=== PATIENT | female | born 2000 | race African-American/Black ===

== ENCOUNTER 2020-10-16 07:33 | Inpatient (IN) | payer OTHER ==
[2020-10-16 08:06] VITALS: BMI 29.5
[2020-10-16] MEDS ORDERED: hydrALAZINE 20 MG/ML VIAL SLOW IVP PRN ×2 (08:23→11:14)
[2020-10-16] MEDS ORDERED: Lactated Ringer's 1,000 ML IV SCH ×2 (08:30→11:15)
[2020-10-16] MEDS ORDERED: valACYclovir 500 MG TAB PO SCH ×2 (10:45→21:00)
[2020-10-16] MEDS ORDERED: Ibuprofen 800 MG TAB PO PRN (11:14)
[2020-10-16] MEDS ORDERED: Methylergonovine 0.2 MG/ML VIAL IM PRN (11:14)
[2020-10-16] MEDS ORDERED: Acetaminophen 500 MG TAB PO PRN (11:14)
[2020-10-16] MEDS ORDERED: Carboprost 250 MCG/ML AMP IM PRN (11:14)
[2020-10-16] MEDS ORDERED: Promethazine HCl 25 MG/ML VIAL IM PRN ×2 (11:14→11:52)
[2020-10-16] MEDS ORDERED: Lidocaine 1% (PF) 30 ML VIAL SC PRN (11:14)
[2020-10-16] MEDS ORDERED: Ondansetron PF 4 MG/2 ML Vial IVP PRN ×2 (11:14→11:52)
[2020-10-16] MEDS ORDERED: Misoprostol 200 MCG TAB PR PRN (11:14)
[2020-10-16] MEDS ORDERED: Fentanyl 4 mcg/Bup 0.1% Cadd 100 ML ONE (11:23)
[2020-10-16] MEDS ORDERED: NS w/ Oxytocin 30 units 500 ML IV PRN (11:27)
[2020-10-16] MEDS ORDERED: NS w/ Oxytocin 30 units 500 ML IVPB SCH (11:30)
[2020-10-16 11:34] LABS: #Neutrophils 9.2 10x3/uL (1.5-8.4); %Basophils 0.2 % (0.0-2.0); %Eosinophils 0.3 % (0.0-6.0); %Lymphocytes 15.9 % (18.0-47.0); %Monocytes 8.3 % (0.0-10.0); %Neutrophils 74.6 % (40.0-75.0); Hemoglobin 11.1 g/dL (12.0-15.5); Mean Corpuscular HGB CONC 32.2 g/dL (32.0-36.0); Mean Corpuscular Hemoglobin 26.8 pg (27.0-33.0); Mean Corpuscular Volume 83.3 fl (81.6-98.3); Mean Platelet Volume 11.9 fl (7.4-10.4); Platelet Count 140 10x3/uL (150-450); RBC Distribution Width 14.1 % (11.5-14.5); Red Blood Cell (RBC) Count 4.14 10x6/uL (3.90-5.03); White Blood Cell (WBC) Count 12.3 10x3/uL (3.5-10.5)
[2020-10-16] MEDS ORDERED: Acetaminophen 325 MG TAB PO PRN (11:52)
[2020-10-16] MEDS ORDERED: Lactated Ringer's 500 ML IV PRN (11:52)
[2020-10-16] MEDS ORDERED: Naloxone HCl 0.4 mg/ml Vial IVP PRN ×2 (11:52)
[2020-10-16] MEDS ORDERED: diphenhydrAMINE 50 MG/ML VIAL IVP PRN (11:52)
[2020-10-16] MEDS ORDERED: ePHEDrine 50 MG/ML VIAL SLOW IVP PRN (11:52)
[2020-10-16] MEDS ORDERED: Communication Order-Pharmacy FS SCH (12:00)
[2020-10-16] MEDS ORDERED: Fentanyl 4 mcg/Bupivacaine 0.1% Cassette 100 ML EPIDURAL SCH (12:00)
[2020-10-16 12:03] LABS: ALT (SGPT) Less than 6 U/L (8-55); AST (SGOT) 16 U/L (5-34); Albumin 3.7 g/dL (3.5-5.0); Alkaline Phosphatase 109 U/L (40-100); Anion Gap 11 mmol/L (10-20); BUN (Urea Nitrogen) Less than 4 mg/dL (7.0-18.7); Bilirubin, Total 0.7 mg/dL (0.2-1.2); Calc. Creatinine Clearance 184 mL/min (70-130); Calcium 9.1 mg/dL (7.8-10.44); Carbon Dioxide 24 mmol/L (22-29); Chloride 106 mmol/L (98-107); Globulin 3.1 g/dL (2.4-3.5); Glucose 75 mg/dL (70-105); Potassium 3.5 mmol/L (3.5-5.1); Protein, Total 6.8 g/dL (6.0-8.3); Sodium 137 mmol/L (136-145)
[2020-10-16 12:23] LABS: HIV (1/2) Antibody/Antigen Non-Reactive (NonReactive); HIV 1/2 INDEX 0.09 S/CO (<1.00); Hep B Surf Ag Non-Reactive S/CO (NonReactive)
[2020-10-16 12:24] LABS: Syphilis Antibody Nonreactive (Nonreactive); Syphilis Antibody Index 0.02 S/CO (<1.00 Non-Reactive)
[2020-10-16 12:33] LABS: HBSAg Index 0.15 S/CO (0-0.99)
[2020-10-16 12:48] LABS: Amphetamine Not Detected (NotDetected); Barbiturates Screen Not Detected (NotDetected); Benzodiazepine Screen Not Detected (NotDetected); Cocaine Metabolite Screen Not Detected (NotDetected); Methadone Not Detected (NotDetected); Methamphetamine Not Detected (NotDetected); Opiate Screen Not Detected (NotDetected); Oxycodone Screen Not Detected (NotDetected); Phencyclidine (PCP) Not Detected (NotDetected); THC/Cannabinoid Screen Detected (NotDetected); Tricyclic Screen Not Detected (NotDetected)
[2020-10-16 13:03] LABS: Creatinine, Urine 80.97 mg/dL (47-110)
[2020-10-17 01:30] LABS: SARS-CoV-2 PCR NAA for Saliva Not Detected (NotDetected)
[2020-10-17] MEDS ORDERED: Preparation H Ointment 28 GM TUBE PR PRN (05:32)
[2020-10-17] MEDS ORDERED: Milk Of Magnesia 30 ML UDCUP PO PRN (05:32)
[2020-10-17] MEDS ORDERED: Benzocaine-Menthol 82.5 ML CAN TOP PRN (05:32)
[2020-10-17] MEDS ORDERED: diphenhydrAMINE 25 MG CAP PO PRN (05:32)
[2020-10-17] MEDS ORDERED: Bisacodyl 10 MG SUPP PR PRN (05:32)
[2020-10-17] MEDS ORDERED: hydrALAZINE 20 MG/ML VIAL SLOW IVP PRN ×2 (05:32→13:36)
[2020-10-17] MEDS ORDERED: Lanolin Ointment 7 GM TUBE TOP PRN (05:32)
[2020-10-17] MEDS ORDERED: Ondansetron PF 4 MG/2 ML Vial IVP PRN (05:32)
[2020-10-17] MEDS ORDERED: NS w/ Oxytocin 30 units 500 ML IV SCH (05:45)
[2020-10-17 06:30] LABS: ALT (SGPT) Less than 6 U/L (8-55); AST (SGOT) 19 U/L (5-34); Alkaline Phosphatase 94 U/L (40-100); Anion Gap 11 mmol/L (10-20); BUN (Urea Nitrogen) Less than 4 mg/dL (7.0-18.7); Bilirubin, Total 1.2 mg/dL (0.2-1.2); Calc. Creatinine Clearance 193 mL/min (70-130); Calcium 8.5 mg/dL (7.8-10.44); Carbon Dioxide 22 mmol/L (22-29); Chloride 107 mmol/L (98-107); Globulin 2.5 g/dL (2.4-3.5); Potassium 3.4 mmol/L (3.5-5.1); Protein, Total 5.5 g/dL (6.0-8.3); Sodium 137 mmol/L (136-145)
[2020-10-17 06:34] LABS: Glucose 58 mg/dL (70-105)
[2020-10-17] MEDS: Prenatal Vitamin 1 TAB PO SCH (08:59)
[2020-10-17] MEDS: Docusate Calcium (SURFAK) 240 MG CAP PO SCH ×2 (08:59→22:40)
[2020-10-17] MEDS: Ferrous Sulfate 325 MG TAB PO SCH ×2 (09:00→16:48)
[2020-10-17] MEDS: Ibuprofen 800 MG TAB PO SCH ×3 (12:15→22:40)
[2020-10-17] MEDS ORDERED: valACYclovir 500 MG TAB PO SCH ×2 (14:30→21:00)
[2020-10-18 04:43] LABS: Hemoglobin 9.3 g/dL (12.0-15.5)
[2020-10-18 06:04] VITALS: TEMP 98.2
[2020-10-18] MEDS: Docusate Calcium (SURFAK) 240 MG CAP PO SCH (09:39)
[2020-10-18] MEDS: Ferrous Sulfate 325 MG TAB PO SCH (09:39)
[2020-10-18] MEDS: Prenatal Vitamin 1 TAB PO SCH (09:39)
[2020-10-18] MEDS: Ibuprofen 800 MG TAB PO SCH (10:07)
[2020-10-18 10:13] VITALS: BP 130/91
== END 2020-10-18 14:22 | disposition home or self-care (01) | DRG 806 ==
LOC: CSHLD/OP 07:33 → CSHLD 10:15 → CSHPED 10-17 08:47
PROVIDERS: ADMIT Emergency Medicine; ATTEND Emergency Medicine
PROC: 4A0HXCZ Measurement of Products of Conception, Cardiac Rate, External Approach (ICD-10-PCS; principal; 2020-10-16)
PROC: 10E0XZZ Delivery of Products of Conception, External Approach (ICD-10-PCS; 2020-10-16)
DX: O13.4 Gestational [pregnancy-induced] hypertension without significant proteinuria, complicating childbirth (principal); O98.52 Other viral diseases complicating childbirth; Z37.0 Single live birth; O99.02 Anemia complicating childbirth; D64.9 Anemia, unspecified; Z3A.39 39 weeks gestation of pregnancy; D69.6 Thrombocytopenia, unspecified; B00.9 Herpesviral infection, unspecified; O99.324 Drug use complicating childbirth; F12.10 Cannabis abuse, uncomplicated
CPT/HCPCS: 36415; 36416; 51702; 80053; 80306; 82570; 84156; 84550; 85014; 85018; 85025; 86780; 86850; 86900; 86901; 87340; 87389; 87635; 99285; J0360; J2590; U0003; U0005

== ENCOUNTER 2022-02-10 22:30 | Emergency (ER) | payer OTHER ==
[2022-02-11] MEDS ORDERED: Ondansetron ODT 4 MG TAB ONE (00:28)
== END 2022-02-11 00:22 | disposition home or self-care (01) ==
LOC: CSHERS 22:30
DX: R11.0 Nausea (principal); Z20.822 Contact with and (suspected) exposure to COVID-19; F17.210 Nicotine dependence, cigarettes, uncomplicated
CPT/HCPCS: 99283; Q0162; U0003; U0005

== ENCOUNTER 2022-07-12 15:43 | Emergency (ER) | payer OTHER ==
[2022-07-12 16:34] LABS: Bilirubin Neg (Negative); Blood, Urine Negative (Negative); Clarity Slightly Cloudy (Clear); Glucose, Urine (Dipstick) Normal (Negative); Ketone, Urine Negative (Negative); Leukocyte 100 (Negative); Nitrite Negative (Negative); Protein, Urine (Dipstick) Negative (Neg-Trace)
[2022-07-12 16:40] LABS: Pregnancy Test - Urine (BHCG) Negative (Negative)
[2022-07-12 16:41] LABS: Pregu Control Background? CLEAR/WHITE (CLR/WHITE); Pregu Control Bar Appear? YES (CONTROL BAR)
[2022-07-12] MEDS ORDERED: Ketorolac Tromethamine 30 MG/ML VIAL ONE (16:49)
[2022-07-12 16:59] LABS: RBC/HPF None Seen HPF (0-3)
[2022-07-12 17:00] LABS: Bacteria/HPF Rare-Few HPF (None Seen)
== END 2022-07-12 17:15 | disposition home or self-care (01) ==
LOC: CSHERS 15:43
DX: M54.50 Low back pain, unspecified (principal); F17.210 Nicotine dependence, cigarettes, uncomplicated; V49.10XA Passenger injured in collision with unspecified motor vehicles in nontraffic accident, initial encounter; Y92.410 Unspecified street and highway as the place of occurrence of the external cause
CPT/HCPCS: 81003; 81015; 81025; 96372; 99283; J1885